=== PATIENT | female | born 1975 | race African-American/Black ===

== ENCOUNTER 2020-07-11 00:22 | Emergency (ER) | payer MEDICAID, OTHER ==
[~2020-07-11] VITALS: Ht 167.6 cm; Wt 73.6 kg
[~2020-07-11 00:22] MED LIST: LISI1TAB23 PO; MEDR150D3 IM
--- NOTE | 2020-07-11 00:39 | PHYS DOC ---
Past Medical History Past Medical History: A-Fib Drug Use: None General Adult EDM: Chief Complaint: ABDOMINAL PAIN HPI: HPI: Patient is a 44 year old female who arrives with a chief complaint of the left side abdominal pain. Patient was in her normal state of health when she was awoken with severe left flank rating to left lower abdomen stabbing abdominal pain pain is worse with movement and palpation. Patient denies any fevers chills cough vomiting or diarrhea. Patient denies any recent illnesses. Patient denies any blood in her stool. Patient denies any hematuria or dysuria. Patient states the pain is severe and intensity currently Review of Systems: Review of Systems: Constitutional: Denies fever or chills. [] Eyes: Denies change in visual acuity. [] HENT: Denies nasal congestion or sore throat. [] Respiratory: Denies cough or shortness of breath. [] Cardiovascular: Denies chest pain or edema. [] GI: Complains of abdominal pain but no vomiting blood in the stool or diarrhea : Denies dysuria. [] Musculoskeletal: Denies back pain or joint pain. [] Integument: Denies rash. [] Neurologic: Denies headache, focal weakness or sensory changes. [] Endocrine: Denies polyuria or polydipsia. [] Lymphatic: Denies swollen glands. [] Psychiatric: Denies depression or anxiety. [] Heart Score: Risk Factors: Risk Factors: DM, Current or recent (<one month) smoker, HTN, HLP, family history of CAD, obesity. Risk Scores: Score 0 - 3: 2.5% MACE over next 6 weeks - Discharge Home Score 4 - 6: 20.3% MACE over next 6 weeks - Admit for Clinical Observation Score 7 - 10: 72.7% MACE over next 6 weeks - Early Invasive Strategies Allergies: Allergies: Allergies Coded Allergies Type Severity Reaction Last Updated Verified No Known Drug Allergies 04/15/15 No Physical Exam: PE: Constitutional: Well developed, well nourished, no acute distress, non-toxic appearance. [] HENT: Normocephalic, atraumatic, bilateral external ears normal, oropharynx moist, nose normal. [] Eyes: PERRLA, EOMI, conjunctiva normal, no discharge. [] Neck: Normal range of motion, no tenderness, supple, no stridor. [] Cardiovascular:Heart rate regular rhythm, peripheral pulse intact, cap refill is brisk Lungs & Thorax: Bilateral breath sounds clear, no respiratory distress Abdomen: , soft left lower quadrant tenderness without guarding or rebound no masses, no pulsatile masses. [] Skin: Warm, dry, no erythema, no rash. [] Back: No tenderness, no CVA tenderness. [] Extremities: No tenderness, no cyanosis, no clubbing, ROM intact, no edema. [] Neurologic: Alert and oriented X 3, normal motor function, normal sensory function, no focal deficits noted. [] Psychologic: Affect normal, judgement normal, mood normal. [] Current Patient Data: Labs: Laboratory Tests Test 07/11/20 00:58 07/11/20 02:00 07/11/20 03:00 Urine Collection Type Unknown Urine Color Yellow Urine Clarity Clear Urine pH 7.0 Urine Specific [place] 1.020 Urine Protein Negative mg/dL Urine Glucose (UA) Negative mg/dL Urine Ketones (Stick) Negative mg/dL Urine Blood Negative Urine Nitrite Negative Urine Bilirubin Negative Urine Urobilinogen Dipstick 0.2 mg/dL Urine Leukocyte Esterase Negative Urine RBC 0 /HPF Urine WBC Occ /HPF Urine Squamous Epithelial Cells Few /LPF Urine Bacteria Few /HPF Urine Mucus Mod /LPF Urine Test Negative White Blood Count 9.6 x10^3/uL Red Blood Count 4.46 x10^6/uL Hemoglobin 13.6 g/dL Hematocrit 40.8 % Mean Corpuscular Volume 92 fL Mean Corpuscular Hemoglobin 31 pg Mean Corpuscular Hemoglobin Concent 33 g/dL Red Cell Distribution Width 13.0 % Platelet Count 270 x10^3/uL Neutrophils (%) (Auto) 76 % Lymphocytes (%) (Auto) 17 % Monocytes (%) (Auto) 6 % Eosinophils (%) (Auto) 0 % Basophils (%) (Auto) 1 % Neutrophils # (Auto) 7.3 x10^3/uL Lymphocytes # (Auto) 1.7 x10^3/uL Monocytes # (Auto) 0.5 x10^3/uL Eosinophils # (Auto) 0.0 x10^3/uL Basophils # (Auto) 0.0 x10^3/uL Vital Signs: Vital Signs Date Time Temp Pulse Resp B/P (MAP) Pulse Ox O2 Delivery O2 Flow Rate FiO2 07/11/20 00:22 98.5 91 16 128/85 (99) 98 Room Air 98.5 EKG: EKG: EKG interpreted by me normal sinus rhythm with rate of 67 normal axis normal intervals normal ST segments Radiology/Procedures: Radiology/Procedures: [] Course & Med Decision Making: Course & Med Decision Making Pertinent Labs and Imaging studies reviewed. (See chart for details) [] 44-year-old female presents with a chief complaint of abdominal pain. Patient is a very tough IV stick would not let me place an IJ. Patient eloped prior to her CT scan. Dragon Disclaimer: DragKivra Disclaimer: This electronic medical record was generated, in whole or in part, using a voice recognition dictation system. Departure Departure Impression: Primary Impression: Abdominal pain Disposition: ADMITTED INPATIENT (Eloped) Condition: STABLE Referrals: NON,STAFF (PCP) CARLIE SMART MD Jul 11, 2020 00:39
[2020-07-11 01:18] LABS: BILIRUBIN,URINE NEGATIVE (NEG); CLARITY,URINE CLEAR; COLOR,URINE YELLOW; NITRITE,URINE NEGATIVE (NEG); PROTEIN,URINE NEGATIVE (NEG-TRACE); UROBILINOGEN,URINE 0.2 mg/dL (0.2 mg/dL)
[2020-07-11 01:22] LABS: BACTERIA,URINE FEW /HPF (0-FEW); RBC,URINE 0 /HPF (0-2); WBC,URINE OCC /HPF (0-4)
[2020-07-11 03:00] VITALS: BP 134/85
[2020-07-11 03:09] LABS: BASO % 1 % (0-3); EOS % 0 % (0-3); HEMATOCRIT 40.8 % (36.0-47.0); HEMOGLOBIN 13.6 g/dL (12.0-15.5); LYMPH # 1.7 x10^3/uL (1.0-4.8); LYMPH % 17 % (24-48); MEAN CORPUSCULAR HEMOGLOBIN 31 pg (25-35); MEAN CORPUSCULAR HGB CONC 33 g/dL (31-37); MEAN CORPUSCULAR VOLUME 92 fL (79-100); MONO # 0.5 x10^3/uL (0.0-1.1); MONO % 6 % (0-9); NEUT # 7.3 x10^3/uL (1.8-7.7); NEUT % 76 % (31-73); PLATELET COUNT 270 x10^3/uL (140-400); RED BLOOD COUNT 4.46 x10^6/uL (3.50-5.40); WHITE BLOOD COUNT 9.6 x10^3/uL (4.0-11.0)
[2020-07-11 03:14] LABS: U PREG PATIENT NEGATIVE (NEG)
[2020-07-11 03:17] LABS: CALCIUM 8.6 mg/dL (8.5-10.1); CREATININE 0.8 mg/dL (0.6-1.0); GFR 93.9; POTASSIUM 3.6 mmol/L (3.5-5.1)
[2020-07-11 03:19] LABS: PROTHROMBIN TIME PATIENT 13.5 SEC (11.7-14.0)
[2020-07-11 03:32] LABS: ALBUMIN 3.5 g/dL (3.4-5.0); ALBUMIN/GLOBULIN RATIO 0.8 (1.0-1.7); TOTAL BILIRUBIN 0.3 mg/dL (0.2-1.0); TOTAL PROTEIN 7.8 g/dL (6.4-8.2)
--- NOTE | 2020-07-11 10:41 | EKG ---
[facility] [address] [place] [id number] Test Date: 2020-07-11 Test Time: 01:23:15 Pat Name: VIRGIL CONTEH Department: Room: Gender: F Channel Manager: : 1975 Requested By: CARLIE SMART Order Number: [id number] Reading MD: Measurements Intervals [place] Rate: 67 P: 31 NE: 172 QRS: 20 QRSD: 70 T: 16 QT: 390 QTc: 415 Interpretive Statements SINUS RHYTHM NO SPECIFIC ECG ABNORMALITIES RI6.01 No previous ECG available for comparison
== END 2020-07-11 03:14 | disposition left against medical advice (07) ==
LOC: ER 00:22
DX: R10.32 Left lower quadrant pain (principal); I48.20 Chronic atrial fibrillation, unspecified
CPT/HCPCS: 36415; 80053; 81001; 81025; 83605; 83690; 85025; 85610; 85730; 93005; 99285